=== PATIENT | female | born 1995 | race Caucasian/White ===

== ENCOUNTER → 2017-11-22 | Outpatient (CLI) | payer BC ==
[2017-11-22 17:04] LABS: APPEARANCE CLEAR, COLORLESS; CSF TUBE NUMBER TUBE #3; RED CELL COUNT 11 /MM^3 (0-1); WHITE CELL COUNT 0 /MM^3 (0-5)
[2017-11-22 17:05] LABS: CSF EOSINOPHILS 0 % (0-25); MONONUCLEAR WBC'S 0 % (50-90); POLYNUCLEAR WBC'S 0 % (0-3)
[2017-11-22 17:07] LABS: CSF PROTEIN 16 mg/dL (15-45)
[2017-11-22 17:12] LABS: GLUCOSE, CSF 56 mg/dL (40-80)
[2017-11-22 17:52] LABS: APPEARANCE (RECHECK) CLEAR, COLORLESS; CSF TUBE NUMBER (RECHECK) TUBE #1; RED CELL COUNT (RECHECK) 1 /MM^3 (0-1)
== END | disposition home or self-care (01) ==
LOC: RAD 14:38
PROVIDERS: Specialist
PROC: 009U3ZZ Drainage of Spinal Canal, Percutaneous Approach (ICD-10-PCS; principal; 2017-11-22)
DX: H47.11 Papilledema associated with increased intracranial pressure (principal)
CPT/HCPCS: 62270; 77003; 82945; 83916 90; 84157; 87070; 87205; 87210; 88108; 89051